=== PATIENT | male | born 1970 | race Caucasian/White ===

== ENCOUNTER → 2016-07-29 | Outpatient (CLI) | payer BC ==
--- NOTE | 2016-07-29 11:20 | DI ---
MRI LOW EXTREMITY JNT W/O CN,07/29/2016 9:53 AM: Clinical History: Pain and swelling in the right knee Previous Exam: None at this facility. Findings: Multiplanar MR images are obtained through the right knee without contrast. Bony alignment is anatomic. No fractures are seen. There is a large knee joint effusion. Is mild thinning of the articular cartilage tricompartmentally without full-thickness defects. There is an undersurface tear of the body of the medial meniscus as well as some mild truncation of t he body of the medial meniscus. The lateral meniscus is intact. The anterior and posterior cruciate ligaments are intact. The medial and lateral collateral ligaments are also intact. There is edema in the surrounding fat. Major vascular flow voids are unremarkable. Signal within the musculature is also unremarkable. The quadriceps and patellar tendons are intact. Impression:
== END ==
LOC: MRI 09:46
PROVIDERS: ATTEND Orthopaedic Surgery
DX: M25.561 Pain in right knee (principal); S83.241A Other tear of medial meniscus, current injury, right knee, initial encounter; M25.461 Effusion, right knee
CPT/HCPCS: 73721